=== PATIENT | male | born 1965 | race Asian ===

== ENCOUNTER 2017-01-26 09:14 | Inpatient (IN) | payer OTHER ==
[~2017-01-26] VITALS: Ht 177.8 cm; Wt 86.5 kg
[~2017-01-26 09:14] MED LIST: AMLO-145; ATOR20TA17; SERT-165; [UNRECOGNIZED DRUG - CODE]; [UNRECOGNIZED DRUG - OTHER]
[2017-01-26] MEDS ORDERED: FUROSEMIDE 40 MG INJ IV ONE (10:00)
--- NOTE | 2017-01-26 10:03 | ERA ---
ER Documentation Chief Complaint Date/Time DATE: 01/26/17 TIME: 10:02 Chief Complaint sob and bilateral leg swelling x 1 month HPI 51-year-old man here for evaluation of bilateral peripheral edema 4 weeks. Patient states for the last 2 weeks he has had some shortness of breath. Patient also complains of right upper quadrant abdominal pain 1-2 weeks which is been nonexertional nonradiating. He denies previous episodes of this type of abdominal pain. He has a family history of liver problems and has remote alcoholism although denies recent drinking. He denies blood per rectum or melena, no fevers or chills, no cough, no chest pain, no vomiting or diarrhea. ROS All systems reviewed and are negative except as per history of present illness. Medications Home Meds Reported Medications Cholecalciferol* (Vitamin D3*) 1,000 Unit Tablet, 2000 UNIT PO DAILY, TAB 01/26/17 Losartan Potassium* (Losartan Potassium*) 50 Mg Tablet, 50 MG PO DAILY, TAB 01/26/17 Furosemide* (Lasix*) 20 Mg Tablet, 20 MG PO DAILY, TAB 01/26/17 Lovastatin* (Lovastatin*) 20 Mg Tablet, 20 MG PO HS, TAB 01/26/17 Potassium Chloride (Klor-Con M10) 10 Meq Tab.prt.sr, 10 MEQ PO DAILY 01/26/17 Discontinued Reported Medications Atorvastatin (Lipitor) 20 Mg Tablet 05/23/10 Metoprolol Succinate (Toprol Xl) 200 Mg Tab.sr.24h 05/23/10 Amlodipine Besylate* (Amlodipine Besylate*) 5 Mg Tablet 05/23/10 Sertraline Hcl* (Sertraline Hcl*) 100 Mg Tablet 05/23/10 [Respirdone] No Conflict Check 05/23/10 Allergies Allergies: Coded Allergies: sesame oil (Verified Allergy, Mild, 01/26/17) PMhx/Soc Hepatitis B, alcoholism, hypertension, dyslipidemia, psychiatric illness History of Surgery: Yes (STENTS FOR KIDNEY STONES,DENTAL IMPLANT,LASIK, BACK SX ) Anesthesia Reaction: No Hx Neurological Disorder: No Hx Respiratory Disorders: No Hx Cardiac Disorders: No Hx Psychiatric Problems: Yes (PT ON ANTIDEPRESSANTS) Hx Miscellaneous Medical Probl: Yes (HIGH CHOLESTEROL) Hx Alcohol Use: Yes (RARE) Hx Substance Use: No Hx Tobacco Use: Yes Smoking Status: Never smoker FmHx Family history positive for hepatic carcinoma and cirrhosis Family History: No diabetes Physical Exam Vitals Vital Signs Date Time Temp Pulse Resp B/P Pulse Ox O2 Delivery O2 Flow Rate FiO2 01/26/17 13:00 98.3 89 20 148/90 99 Room Air 01/26/17 10:05 Nasal Cannula 2 01/26/17 10:05 Nasal Cannula 2.0 01/26/17 09:17 97.1 95 24 115/68 97 Physical Exam GENERAL: Well-developed, well-nourished, well-hydrated, in no apparent distress , looks nontoxic in appearance HEENT: Moist mucous membranes, pink conjunctiva, positive jaundice, extraocular movements intact without pain. No submandibular induration, and no pharyngeal erythema NEURO: Alert and oriented 3, cranial nerves II through XII intact bilaterally, pupils equal round reactive to light, no focal deficits or facial asymmetry, sensation intact distally Strength 5/5 in upper and lower extremities bilaterally CARDIAC: Regular rate and rhythm, no murmurs rubs or gallops LUNGS: Clear bilaterally no wheezing crackles or stridor ABDOMEN: Positive Dorado's point tenderness to touch, right upper quadrant tenderness to touch with voluntary guarding, no rigidity or rebound. SKIN: Warm and dry to touch, no abrasions, contusions, or hematomas, no lacerations, no ecchymosis, no target lesions, and without ulcers EXTREMITIES: No clubbing cyanosis, 3+ pitting edema in the lower extremities bilaterally, calves are bilaterally symmetrical, no Homans sign, no popliteal cord sign. Distal pulses equal and bilateral PSYCH: Normal affect without agitation or irritability Result Diagram: 01/26/17 1008 01/26/17 1008 Results 24 hrs Laboratory Tests Test 01/26/17 10:07 01/26/17 10:08 Blood Gas Specimen Source Blood arterial Arterial Blood Date Drawn 01/26/2017 10:30:05 AM Arterial Blood pH (Temp corrected) 7.378 Arterial Blood pCO2 (Temp correct) 39.1mmhg Arterial Blood pO2 (Temp corrected) 116.2mmHG Arterial Blood HCO3 22.5mmol/L Arterial Blood Base Excess -2.3mmol/L Arterial Blood Oxygen Saturation 97.7mmHG Jermaine Test ACCEPTAB Arterial Blood Gas Puncture Site Right Radial Arterial Blood Carboxyhemoglobin 2.6% Arterial Blood Methemoglobin 0.4% Blood Gas A-a O2 Differential 30.1mmHg Oxyhemoglobin Percent 94.8% Total Hemoglobin 14.5g/dl Blood Gas Temperature 37.0C Blood Gas Actual Respiration Rate 18 Blood Gas Modality ROOM AIR FiO2 27.0% Blood Gas Notified Whom Blood Gas Notified Time 01/26/2017 10:41:44 AM White Blood Count 5.510^3/ul Red Blood Count 4.2610^6/ul Hemoglobin 13.2g/dl Hematocrit 40.0% Mean Corpuscular Volume 93.9fl Mean Corpuscular Hemoglobin 31.0pg Mean Corpuscular Hemoglobin Concent 33.0g/dl Red Cell Distribution Width 15.6% Platelet Count 77986^3/UL Mean Platelet Volume 9.4fl Neutrophils % 61.1% Lymphocytes % 23.4% Monocytes % 10.6% Eosinophils % 4.0% Basophils % 0.5% Nucleated Red Blood Cells % 0.0/100WBC Neutrophils # 3.410^3/ul Lymphocytes # 1.310^3/ul Monocytes # 0.610^3/ul Eosinophils # 0.210^3/ul Basophils # 0.010^3/ul Nucleated Red Blood Cells # 0.010^3/ul Prothrombin Time 13.2Sec Prothrombin Time Ratio 1.0 INR International Normalized Ratio 1.00 Sodium Level 142mmol/L Potassium Level 4.2mmol/L Chloride Level 110mmol/L Carbon Dioxide Level 22mmol/L Anion Gap 14 Blood Urea Nitrogen 18mg/dl Creatinine 1.06mg/dl Glucose Level 97mg/dl Calcium Level 8.4mg/dl Total Bilirubin 0.6mg/dl Direct Bilirubin 0.00mg/dl Indirect Bilirubin 0.6mg/dl Aspartate Amino Transf (AST/SGOT) 31IU/L Alanine Aminotransferase (ALT/SGPT) 49IU/L Alkaline Phosphatase 62IU/L Troponin I 0.034ng/ml Total Protein 5.9g/dl Albumin 3.5g/dl Globulin 2.40g/dl Albumin/Globulin Ratio 1.45 Lipase 83U/L Alpha Fetoprotein 2.95IU/L Carcinoembryonic Antigen 1.6ng/ml Current Medications Medications (Trade) Dose Ordered Sig/Nii Route PRN Reason Start Time Stop Time Status Last Admin Dose Admin Furosemide 40 mg 40 mg ONCE ONCE IV 01/26/17 10:00 01/26/17 10:01 DC 7/24/17 10:14 Levofloxacin/ Dextrose (Levaquin 750 Mg/ D5W 150 ml (Pmx)) 150 ml @ 100 mls/hr ONCE ONCE IVPB 01/26/17 11:30 01/26/17 12:59 DC 01/26/17 11:29 Albuterol (Proventil 0.5% (Neb)) 10 mg ONCE STAT INH 01/26/17 11:33 01/26/17 11:35 DC Enalaprilat (Vasotec Iv) 1.25 mg ONCE ONCE IV 01/26/17 14:00 01/26/17 14:01 Procedures/MDM IV line was established patient was placed on school lunch monitor rhythm strip revealed a sinus rhythm at about 80 bpm with upright P and T waves. Patient was afebrile. EKG performed, read by me: 88 bpm, normal sinus rhythm, normal axis, no acute ST segment changes, narrow QRS complex, with good R-wave progression in precordial leads. I initially suspected CHF and administered furosemide 40 mg IV, patient was hypertensive and he received enalapril 1.[address] scan of the abdomen and pelvis did not reveal any acute inflammatory infectious pathology. One view chest x-ray reveals right lower lobe atelectasis, no acute infiltrates , no pneumothorax. Right upper quadrant gallbladder ultrasound revealed thickened gallbladder wall with gallstones concerning for possible acute cholecystitis, MRCP recommended. ABG was normal. For complaints of shortness of breath I administered albuterol 10 mg via nebulizer. Patient has abnormalities found on today's imaging both of which can contribute to right upper quadrant abdominal pain, she presents with peripheral edema shortness of breath, which I suspect is pulmonary edema. He was also hypertensive. He will be admitted to telemetry setting for continued medical management and surgical consultation. I spoke to general surgeon communication electronic technician who agreed to consult the patient. Patient is without complaints of pain at this time. CBC and electrolytes were normal, liver function tests normal, troponin was negative. Departure Diagnosis: Primary Impression: Peripheral edema Additional Impressions: Atelectasis of right lung CHF (congestive heart failure) Qualified Code: I50.21 - Acute systolic congestive heart failure Hypertension Qualified Code: I10 - Essential hypertension Cholelithiasis and acute cholecystitis with obstruction Condition: MAO Montes MD Jan 26, 2017 10:03
--- NOTE | 2017-01-26 10:25 | RADRPT ---
PROCEDURE: XR Chest. CLINICAL INDICATION: Abdominal pain TECHNIQUE: Single portable view of the chest was obtained COMPARISON: None FINDINGS: The heart is enlarged. There are mild right lower lobe linear atelectatic changes. The lungs are otherwise clear. There is no pleural effusion or pneumothorax. RPTAT: AA IMPRESSION: Mild Cardiomegaly. Mild right lower lobe linear atelectatic changes. .Rory Pepe MD, MD Date Time Electronically viewed and signed by .Rory Pepe MD, on 01/26/2017 10:25 .S/
[2017-01-26 10:31] LABS: BASOPHILS % 0.5 % (0.0-2.0); EOSINOPHILS # 0.2 10^3/ul (0.0-0.5); HEMOGLOBIN 13.2 g/dl (14.0-18.0); LYMPHOCYTES # 1.3 10^3/ul (0.8-2.9); LYMPHOCYTES % 23.4 % (15.0-51.0); MEAN CORPUSCULAR VOLUME 93.9 fl (82.0-101.0); MEAN PLATELET VOLUME 9.4 fl (7.4-10.4); MONOCYTE # 0.6 10^3/ul (0.3-0.9); MONOCYTES % 10.6 % (0.0-11.0); NEUTROPHIL # 3.4 10^3/ul (1.6-7.5); NEUTROPHILS % 61.1 % (39.0-77.0); PLATELET COUNT 190 10^3/UL (140-415); RED BLOOD COUNT 4.26 10^6/ul (4.70-6.10); RED CELL DISTRIBUTION WIDTH 15.6 % (11.5-14.5); WHITE BLOOD COUNT 5.5 10^3/ul (4.8-10.8)
[2017-01-26 10:41] LABS: AADO2 Arterial 30.1 mmHg (7.0-24.0); Allen Test ACCEPTAB; Arterial Base Excess -2.3 mmol/L (-3.0-3); Arterial COHb 2.6 % (0.0-3.0); Arterial Fraction of Oxyhgb 94.8 % (93.0-99.0); Arterial HCO3 22.5 mmol/L (22.0-26.0); Arterial MetHb 0.4 % (0.0-1.5); Arterial Total Hemglobin 14.5 g/dl (12.0-18.0); MODE ROOM AIR
[2017-01-26 10:54] LABS: PROTIME 13.2 Sec (12.2-14.2)
[2017-01-26 10:58] LABS: ALBUMIN 3.5 g/dl (3.3-4.9); ALBUMIN/GLOBULIN RATIO 1.45; BILIRUBIN,INDIRECT 0.6 mg/dl (0-1.1); BILIRUBIN,TOTAL 0.6 mg/dl (0.2-1.3); CALCIUM 8.4 mg/dl (8.4-10.2); CREATININE 1.06 mg/dl (0.61-1.24); POTASSIUM 4.2 mmol/L (3.5-5.1); TOTAL PROTEIN 5.9 g/dl (6.1-8.1)
[2017-01-26 11:07] LABS: TROPONIN-I 0.034 ng/ml (0.00-0.12)
[2017-01-26 11:26] LABS: CARCINOEMBRYONIC ANTIGEN 1.6 ng/ml (0.0-5.0)
[2017-01-26] MEDS ORDERED: LEVOFLOXACIN 750MG/D5W (PMX) 150 ML IVPB ONE (11:30)
[2017-01-26] MEDS ORDERED: ALBUTEROL 0.5% (NEB) 2.5 MG/0.5 ML AMP INH STA (11:33)
--- NOTE | 2017-01-26 11:33 | RADRPT ---
PROCEDURE: CT Abdomen and pelvis without contrast. CLINICAL INDICATION: Abdominal pain TECHNIQUE: CT scan of the abdomen and pelvis without contrast was performed on a multidetector hig h-resolution CT scan. . Coronal and sagittal reformatted images were obtained from the [facility] e images. Standard CT scan of the abdomen pelvis without contrast protocols were performed. The total exam CTDI equals 11.082 mGy and the total exam DLP equals 697.71 mGy-cm. One or more of the following dose reduction techniques were used: - Automated exposure control. - Adjustment of the mA and/or kV according to patient size. Use of iterative reconstruction technique. COMPARISON: None. FINDINGS: There is bibasilar atelectasis and parenchymal scarring. There is a small dependent right pleural e ffusion incompletely visualized. The heart is borderline enlarged with coronary artery disease. No pericardial effusion. In the subcapsular superior left lobe of the liver is a 2 cm cyst. In the superior right lobe of th e liver is a 1.2 cm cyst. In the superior right lobe of the liver is a punctate calcification consis tent with old granulomatous disease. No other hepatic lesions. The spleen pancreas and adrenal gland s are unremarkable. There are multiple calcified gallstones but no definite gallbladder wall thickening. Trace perichol ecystic fluid. Rule out acute calculus cholecystitis. No evidence of biliary ductal dilation. The kidneys are normal in size without hydronephrosis bilaterally. In the superior right kidney is a 3 mm non-obstructing calcified calculus. No other renal calcified calculi. In the lateral left r enal cortex is 8 mm low density too small to absolutely characterize but is likely a cyst. No other definite intra renal masses bilaterally. The ureters are prominent but no definite calcified urete ral calculi. The urinary bladder is unremarkable. The prostate gland is unremarkable. Negative for intra-abdominal free air, free fluid, abscesses or lymphadenopathy. There is a tiny hiatal hernia with the stomach otherwise unremarkable. The small bowel and appendix are unremarkable. There is diverticular changes of the distal descending and sigmoid colon but no CT evidence of diverticulitis. The colon is otherwise unremarkable. There is a small fat containing right inguinal hernia without herniated bowel or strangulation. Pos sible bilateral hydroceles. The abdominal pelvic wall is otherwise unremarkable. There is atherosc lerosis of the aorta. There are degenerative changes lower thoracic and lumbar spine but no acute osseous findings are ost eoblastic/osteolytic lesions. IMPRESSION: 1. Multiple calcified gallstones and trace pericholecystic fluid without biliary ductal dilation. Rule out acute calculus cholecystitis per 2. 3 mm non-obstructing superior right renal calcified calculus. No other calcified urinary calcul i or obstructive uropathy. 8 mm left lateral renal low density likely a cyst. 3. Tiny hiatal hernia. 4. Colonic diverticulosis without CT evidence of diverticulitis or appendicitis. 5. Negative for intra-abdominal free air fluid or abscesses. 6. Small fat containing right inguinal hernia without herniated bowel or strangulation. RPTAT:AAJJ Physician [place] Date Time Electronically viewed and signed by Nathan Hoang Physician on 01/26/2017 11:33 /
--- NOTE | 2017-01-26 12:36 | RADRPT ---
PROCEDURE: Right Upper Quadrant Ultrasound. CLINICAL INDICATION: Abdominal pain, r/o cholecystitis TECHNIQUE: Multiple real-time images were acquired of the patient's right upper quadrant abdomen a nd retroperitoneum utilizing a high resolution transducer. COMPARISON: CT abdomen/pelvis from the same date FINDINGS: The liver measures 15.4 cm, and demonstrates normal echogenicity. The main portal vein is patent wit h proper directional flow. There is no intrahepatic biliary ductal dilatation. The extrahepatic comm on bile duct measures 5 mm. A 1.6 cm simple cyst is identified in the superficial aspect of the left lobe of the liver. It is not associated with vascular flow. A right pleural effusion is incidentally noted. There is cholelithiasis. There is mild nonspecific thickening of the gallbladder wall to 4 mm. Ther e is no pericholecystic fluid. The visualized pancreas is unremarkable. The right kidney measures 11.3 cm and demonstrates normal echotexture. There is no right renal calcu dmitriy or hydronephrosis. The visualized abdominal aorta and IVC are grossly unremarkable. IMPRESSION: Cholelithiasis with mild nonspecific gallbladder wall thickening and no pericholecystic fluid. Find ings may represent acute cholecystitis in the appropriate clinical setting. If further confirmation is indicated, an MRCP can be obtained for further evaluation. Normal CBD. Incidentally noted right pleural effusion. 1.6 cm simple hepatic cyst. RPTAT: EE Physician Diego Date Time Electronically viewed and signed by Physician Diego on 01/26/2017 12:36 /
[2017-01-26] MEDS ORDERED: POTA10TA15 PO (12:45)
[2017-01-26] MEDS ORDERED: LOSA50TA6 PO (12:45)
[2017-01-26] MEDS ORDERED: CHOL100062 PO (12:45)
[2017-01-26] MEDS ORDERED: LOVA20TA PO (12:45)
[2017-01-26] MEDS ORDERED: FURO-110 PO (12:45)
[2017-01-26] MEDS ORDERED: ENALAPRILAT 1.25 MG INJ IV ONE (14:00)
[2017-01-26 16:00] VITALS: TEMP 98.3
[2017-01-26] MEDS ORDERED: HYDROCODONE/APAP (5/325) TAB PO PRN ×2 (16:00)
[2017-01-26] MEDS ORDERED: DOCUSATE SODIUM 100 MG CAP PO PRN (16:00)
[2017-01-26] MEDS ORDERED: ACETAMINOPHEN 325 MG TAB PO PRN (16:00)
[2017-01-26] MEDS ORDERED: morphine 2 MG INJ IV PRN (16:00)
[2017-01-26] MEDS ORDERED: NACL 0.9% 3 ML SYG IV SCH (16:00)
[2017-01-26] MEDS ORDERED: BISACODYL 10 MG SUPP PR PRN (16:00)
[2017-01-26] MEDS ORDERED: ONDANSETRON 4 MG INJ IV PRN (16:00)
[2017-01-26] MEDS ORDERED: ACETAMINOPHEN 650 MG SUPP PR PRN (16:00)
[2017-01-26] MEDS ORDERED: MAGNESIUM HYDROXIDE 30ML CUP PO PRN (16:00)
[2017-01-26] MEDS ORDERED: SOD CHLORIDE 0.9% 1,000 ML IV SCH (16:00)
--- NOTE | 2017-01-26 16:12 | HP ---
Date/Time of Note Date/Time of Note DATE: 01/26/17 TIME: 15:57 Assessment/Plan VTE Prophylaxis VTE Prophylaxis Intervention: SCD's Assessment/Plan Chief Complaint/Hosp Course Impression and plan 1. Abdominal pain. Patient with abdominal imaging with cholelithiasis with suspect cholecystitis. f/u LFT. Will get surgeon to follow. 2. 3 mm nonobstructing superior right renal calcified calculus. Monitor renal panel. Appears stable At present. Continue IV hydration 3. Colonic diverticulosis without diverticulitis. Continue IV fluids. 4. Right sided pleural effusion. continue on diuretic. Will check echo. 5. elevated bnp. suspect chf exacerbation. Check echocardiogram 6. Essential Hypertension. start antihypertensives and adjust as needed Discussed plan of care with Dr. Palumbo Problems: HPI/ROS Admit Date/Time Admit Date/Time Hx of Present Illness This is a 51-year-old male with history of schizophrenia, hypertension, chronic back pain with herniated disc status post surgical repair, who came to [facility] due to reports of increased bilateral lower extremity edema as well as shortness of breath on exertion and abdominal pain for 1 month duration. Patient of note does live at home with family but reportedly cares for himself. He was seen by family with more notable shortness of breath last night and was subsequently brought to [facility] for further evaluation. Upon examination he did have chest x-ray done that did show him to have mild cardiomegaly as well as a right lower lobe linear atelectatic change. Subsequently abdominal pelvic CT scan was done also that did show him to have multiple calcified gallstones and trace pericholecystic fluid with suspect cholecystitis. There is incidentally found a 3 mm nonobstructing superior right renal calcified calculus as well. There was seen colonic diverticulosis without evidence of diverticulitis. And there was also seen a small fat- containing right inguinal hernia without herniated bowel or stimulation. Patient also had blood work done that did show him to have some slight anemia with hemoglobin of 13.2 and hematocrit of 40.0 respectively. Additionally BNP was done that did show him to have a level of 2470. Patient was hypertensive on admission with blood pressure as high as 170/101. He was afebrile. He does report having some intermittent chest pain [id number]. He also reports having some dyspnea on exertion. Initial troponin was negative. We will evaluate him for the aformentiond issues. ROS 12 point review of systems obtained and negative besides that mentioned in history of present illness PMH/Family/Social Past Medical History Medical/surgical history 1. Essential hypertension 2. Schizophrenia 3. Chronic back pain 4. History of herniated disc status post repair Social History Alcohol Use: heavy (Does reportedly have history of alcohol use but exact amount unknown) Smoking Status: Heavy tobacco smoker Drug Use: other (unknown) Exam/Review of Systems Vital Signs Vitals Vital Signs Date Time Temp Pulse Resp B/P Pulse Ox O2 Delivery O2 Flow Rate FiO2 01/26/17 15:00 98.3 86 20 154/117 98 Room Air 01/26/17 13:48 2.0 Exam Constitutional: alert Psych: anxiety Head: normocephalic Respiratory: clear to auscultation, normal air movement Cardiovascular: regular rate and rhythm Gastrointestinal: soft, tender (Right upper abdominal quadrant) Extremities: edema (Bilateral lower extreme) Neurological: other (History of schizophrenia with rambling) Labs Result Diagram: 01/26/17 1008 01/26/17 1008 ANT ARMANDO Jan 26, 2017 16:08
--- NOTE | 2017-01-26 16:48 | RADRPT ---
PROCEDURE: US Lower extremity Venous. CLINICAL INDICATION: Bilateral lower extremity edema TECHNIQUE: Multiple sonographic images of the bilateral lower extremity deep venous system was obt ained utilizing grayscale, color-flow, compressive sonography and doppler imaging with augmentation. The images were reviewed on a PACS workstation. COMPARISON: None. FINDINGS: There is normal compressibility and flow within the bilateral common femoral, femoral , posterior ti bial and popliteal veins. RPTAT: AA IMPRESSION: No sonographic evidence for deep venous thrombosis. .Rory Pepe MD, MD Date Time Electronically viewed and signed by .Rory Pepe MD, MD on 01/26/2017 16:47 .S/
[2017-01-26 16:56] VITALS: PULSE 78
[2017-01-26 17:10] VITALS: PULSE 78
[2017-01-26 17:15] VITALS: Ht 177.8 cm; Wt 86.5 kg
[2017-01-26 17:21] VITALS: BP 152/110; PULSE 83; RESP 20
--- NOTE | 2017-01-26 18:36 | CONS ---
Date/Time of Note Date/Time of Note DATE: 01/26/17 TIME: 18:32 Assessment/Plan Assessment/Plan Chief Complaint/Hosp Course Asymptomatic cholelithiasis No further treatment needed at this time. If patient does develop symptoms in the future, may require a laparoscopic cholecystectomy. Problems: Consultation Date/Type/Reason Admit Date/Time Date of Consultation: Jan 26, 2017 Reason for Consultation Cholelithiasis Hx of Present Illness The patient is a 51-year-old male with history of schizophrenia, hypertension, chronic back pain with herniated disc status post surgical repair, who came to [facility] due to reports of increased bilateral lower extremity edema as well as shortness of breath on exertion and abdominal pain for 1 month duration. He also had shortness of breath. During his workup, he was found to have some right upper quadrant tenderness but ER physician. A CT scan was ordered and then an ultrasound which showed gallstones and some gallbladder wall thickening. I was called for consultation. Now is resting comfortably without abdominal pain. He is tolerating a soft diet without symptoms. He denies prior episodes of right upper quadrant pain or nausea or emesis. His workup did show a chest x-ray done that did show him to have mild cardiomegaly as well as a right lower lobe linear atelectatic change. Additionally BNP was done that did show him to have a level of 2470. Patient was hypertensive on admission with blood pressure as high as 170/101. He was afebrile. He does report having some intermittent chest pain non-pressure- like. He also reports having some dyspnea on exertion. Initial troponin was negative. 14 point review of systems was performed. Pertinent negatives per HPI Psychological: anxiety Past Medical History Essential hypertension 2. Schizophrenia 3. Chronic back pain 4. History of herniated disc status post repair Social History Alcohol Use: heavy (Does reportedly have history of alcohol use but exact amount unknown) Smoking Status: Current every day smoker Drug Use: other (unknown) Exam/Review of Systems Vital Signs Vitals Vital Signs Date Time Temp Pulse Resp B/P Pulse Ox O2 Delivery O2 Flow Rate FiO2 01/26/17 17:30 Nasal Cannula 2.0 01/26/17 17:21 97.8 83 20 152/110 98 Exam Constitutional: alert, oriented, well developed Psych: no complaints Head: atraumatic, normocephalic Eyes: nl conjunctiva ENMT: nl external ears & nose Neck: supple Respiratory: diminished breath sounds Cardiovascular: regular rate and rhythm Gastrointestinal: non-tender, soft Extremities: normal pulses Neurological: OPTICAL GLASS WET INSPECTOR II-XII intact Skin: nl turgor Lymph: nl lymph nodes Results Result Diagram: 01/26/17 1008 01/26/17 1008 Results 24 hrs Laboratory Tests Test 01/26/17 10:07 01/26/17 10:08 Blood Gas Specimen Source Blood arterial Arterial Blood Date Drawn 01/26/2017 10:30:05 AM Arterial Blood pH (Temp corrected) 7.378 Arterial Blood pCO2 (Temp correct) 39.1 Arterial Blood pO2 (Temp corrected) 116.2 H Arterial Blood HCO3 22.5 Arterial Blood Base Excess -2.3 Arterial Blood Oxygen Saturation 97.7 Jermaine Test ACCEPTAB Arterial Blood Gas Puncture Site Right Radial Arterial Blood Carboxyhemoglobin 2.6 Arterial Blood Methemoglobin 0.4 Blood Gas A-a O2 Differential 30.1 H Oxyhemoglobin Percent 94.8 Total Hemoglobin 14.5 Blood Gas Temperature 37.0 Blood Gas Actual Respiration Rate 18 Blood Gas Modality ROOM AIR FiO2 27.0 Blood Gas Notified Whom Blood Gas Notified Time 01/26/2017 10:41:44 AM White Blood Count 5.5 Red Blood Count 4.26 L Hemoglobin 13.2 L Hematocrit 40.0 L Mean Corpuscular Volume 93.9 Mean Corpuscular Hemoglobin 31.0 Mean Corpuscular Hemoglobin Concent 33.0 Red Cell Distribution Width 15.6 H Platelet Count 190 Mean Platelet Volume 9.4 Neutrophils % 61.1 Lymphocytes % 23.4 Monocytes % 10.6 Eosinophils % 4.0 Basophils % 0.5 Nucleated Red Blood Cells % 0.0 Neutrophils # 3.4 Lymphocytes # 1.3 Monocytes # 0.6 Eosinophils # 0.2 Basophils # 0.0 Nucleated Red Blood Cells # 0.0 Prothrombin Time 13.2 Prothrombin Time Ratio 1.0 INR International Normalized Ratio 1.00 Sodium Level 142 Potassium Level 4.2 Chloride Level 110 Carbon Dioxide Level 22 Anion Gap 14 Blood Urea Nitrogen 18 Creatinine 1.06 Glucose Level 97 Calcium Level 8.4 Total Bilirubin 0.6 Direct Bilirubin 0.00 Indirect Bilirubin 0.6 Aspartate Amino Transf (AST/SGOT) 31 Alanine Aminotransferase (ALT/SGPT) 49 Alkaline Phosphatase 62 Troponin I 0.034 B-Type Natriuretic Peptide 2470 H Total Protein 5.9 L Albumin 3.5 Globulin 2.40 Albumin/Globulin Ratio 1.45 Lipase 83 Alpha Fetoprotein 2.95 Carcinoembryonic Antigen 1.6 Medications Medications Current Medications Cholecalciferol (Vitamin D) 2,000 unit DAILY PO ; Start 01/27/17 at 09:00 Losartan Potassium (Cozaar) 50 mg DAILY PO ; Start 01/27/17 at 09:00 Atorvastatin Calcium 10 mg 10 mg HS PO ; Start 01/26/17 at 21:00 Sodium Chloride (NS) 1,000 ml @ 80 mls/hr [id number] IV Last administered on 01/26t 17:51; Admin Dose 80 MLS/HR; Start 01/26/17 at 16:00 Ondansetron HCl (Zofran Inj) 4 mg Q6H PRN IV NAUSEA AND/OR VOMITING; Start at 16:00 Acetaminophen (Tylenol Tab) 650 mg Q6H PRN PO PAIN LEVEL 1-3 OR FEVER; Start at 16:00 Acetaminophen (Tylenol Supp) 650 mg Q6H PRN [place] PAIN LEVEL 1-3 OR FEVER; Start 01/26/17 at 16:00 Acetaminophen/ Hydrocodone Bitart ([place] (5/325)) 1 tab Q6H PRN PO MODERATE PAIN LEVEL 4-6; Start 01/26/17 at 16:00 Acetaminophen/ Hydrocodone Bitart ([place] (5/325)) 2 tab Q6H PRN PO SEVERE PAIN LEVEL 7-10; Start 01/26/17 at 16:00 Morphine Sulfate (morphine) 2 mg Q4H PRN IV SEVERE PAIN LEVEL 7-10; Start 01/26 at 16:00 Docusate Sodium (Colace) 100 mg Q12H PRN PO CONSTIPATION; Start 01/26/17 at 16: 00 Magnesium Hydroxide (Milk Of Mag) 30 ml DAILY PRN PO CONSTIPATION; Start at 16:00 Bisacodyl (Dulcolax Supp) 10 mg DAILY PRN [place] CONSTIPATION; Start 01/26/17 at 16 :00 Pantoprazole (Protonix Iv) 40 mg DAILY@06 IV ; Start 01/27/17 at 06:00 Furosemide (Lasix) 40 mg DAILY IV ; Start 01/27/17 at 09:00 Procedures Procedures Patient: LEO CAICEDO : 1965 Age: 51 Sex: M MR #: [id number] DOS: 01/26/17 1138 Ordering MD: MAO MARTIN MD Location: E/R Room/Bed: PROCEDURE: Right Upper Quadrant Ultrasound. CLINICAL INDICATION: Abdominal pain, r/o cholecystitis TECHNIQUE: Multiple real-time images were acquired of the patient's right upper quadrant abdomen and retroperitoneum utilizing a high resolution transducer. COMPARISON: CT abdomen/pelvis from the same date FINDINGS: The liver measures 15.4 cm, and demonstrates normal echogenicity. The main portal vein is patent with proper directional flow. There is no intrahepatic biliary ductal dilatation. The extrahepatic common bile duct measures 5 mm. A 1.6 cm simple cyst is identified in the superficial aspect of the left lobe of the liver. It is not associated with vascular flow. A right pleural effusion is incidentally noted. There is cholelithiasis. There is mild nonspecific thickening of the gallbladder wall to 4 mm. There is no pericholecystic fluid. The visualized pancreas is unremarkable. The right kidney measures 11.3 cm and demonstrates normal echotexture. There is no right renal calculus or hydronephrosis. The visualized abdominal aorta and IVC are grossly unremarkable. IMPRESSION: Cholelithiasis with mild nonspecific gallbladder wall thickening and no pericholecystic fluid. Findings may represent acute cholecystitis in the appropriate clinical setting. If further confirmation is indicated, an MRCP can be obtained for further evaluation. Normal CBD. Incidentally noted right pleural effusion. 1.6 cm simple hepatic cyst. HARLEY ESCOBAR MD Jan 26, 2017 18:36
[2017-01-26 19:40] VITALS: BP 154/93; RESP 18
[2017-01-26 20:00] VITALS: PULSE 78
[2017-01-26] MEDS: ATORVASTATIN 10 MG TAB PO SCH (21:00)
[2017-01-26] MEDS ORDERED: FUROSEMIDE 40 MG INJ IV SCH (23:30)
[2017-01-26] MEDS ORDERED: ALBUTEROL 0.5% (NEB) 2.5 MG/0.5 ML AMP INH SCH (23:30)
[2017-01-27] VITALS (13 sets, daily range): BP systolic 123–145; BP diastolic 91–100; PULSE 69–157; RESP 18–20
[2017-01-27] MEDS: PANTOPRAZOLE 40 MG INJ IV SCH (06:09)
[2017-01-27 08:01] LABS: ALBUMIN 3.4 g/dl (3.3-4.9); ALBUMIN/GLOBULIN RATIO 1.47; BILIRUBIN,INDIRECT 0.7 mg/dl (0-1.1); BILIRUBIN,TOTAL 0.7 mg/dl (0.2-1.3); CALCIUM 8.9 mg/dl (8.4-10.2); CHOL/HDL RATIO 2.8 RATIO; CREATININE 1.03 mg/dl (0.61-1.24); PHOSPHORUS 3.9 mg/dl (2.5-4.9); POTASSIUM 4.6 mmol/L (3.5-5.1); TOTAL PROTEIN 5.7 g/dl (6.1-8.1)
[2017-01-27 08:17] LABS: T3 UPTAKE 36.5 % (23.5-40.5)
[2017-01-27] MEDS: CHOLECALCIFEROL 2,000 UNIT CAP PO SCH (08:51)
[2017-01-27] MEDS: FUROSEMIDE 40 MG INJ IV SCH (08:51)
[2017-01-27] MEDS: LOSARTAN 50 MG TAB PO SCH (08:51)
[2017-01-27 12:21] LABS: THYROID STIMULATING HORMONE 1.57 MIU/L (0.465-4.680)
--- NOTE | 2017-01-27 17:00 | PN ---
Date/Time of Note Date/Time of Note DATE: 01/27/17 TIME: 16:53 Assessment/Plan VTE Prophylaxis VTE Prophylaxis Intervention: LMWH Lines/Catheters IV Catheter Type (from [facility] Saline Lock Urinary Cath still in place: No Assessment/Plan Assessment/Plan 1. Peripheral edema and generalized body ache, unclear etiology, Echo 2. Hypertension, controlled 3. Dyslipidemia, on statin, check CPK Subjective 24 Hr Interval Summary Free Text/Dictation 51 years old male with schizophrenia, a heavy smoker and ex-alcohol abuser came in with generalized edema and body ache. Exam/Review of Systems Vital Signs Vitals Vital Signs Date Time Temp Pulse Resp B/P Pulse Ox O2 Delivery O2 Flow Rate FiO2 01/27/17 16:24 72 01/27/17 16:17 98.6 18 133/94 100 01/27/17 11:33 Nasal Cannula 3.0 Intake and Output 01/26/17 01/26/17 01/27/17 15:00 23:00 07:00 Intake Total 200 ml 520 ml Output Total 400 ml 1450 ml Balance -200 ml -930 ml Exam Constitutional: alert, oriented, well developed Psych: nl mood/affect, no complaints Head: atraumatic, normocephalic Eyes: EOMI, PERRL, nl conjunctiva, nl lids, nl sclera ENMT: nl external ears & nose, nl lips & teeth, nl nasal mucosa & septum Neck: non-tender, supple Respiratory: clear to auscultation, normal air movement, No congested cough, No crackles/rales, No diminished breath sounds, No intercostal retraction, No labored breathing, No other, No respirations, No tactile fremitus, No wheezing Cardiovascular: nl pulses, regular rate and rhythm, No S3, No S4, No bruits, No diastolic murmur, No edema, No gallop, No irregular rhythm, No jugular venous distention (JVD), No murmurs/extra sounds, No other, No rub, No systolic murmur Gastrointestinal: nl liver, spleen, soft, No ascites, No bowel sounds, No distended, No firm, No hepatomegaly, No mass , No other, No rebound or guarding, No splenomegaly, No surgical scars Musculoskeletal: nl extremities to inspection Extremities: edema (bilateral pitting edema on LEs), normal pulses, No calf tenderness, No clubbing, No cyanosis, No other, No palpable cord, No pitting pedal edema, No tenderness Neurological: VEST BUSHELER II-XII intact, nl mental status, nl speech, nl strength Results Result Diagram: 01/26/17 1008 01/27/17 0707 Results 24 hrs Laboratory Tests Test 01/27/17 07:07 Sodium Level 142 Potassium Level 4.6 Chloride Level 105 Carbon Dioxide Level 25 Anion Gap 17 H Blood Urea Nitrogen 18 Creatinine 1.03 Glucose Level 97 Hemoglobin A1c 5.7 Calcium Level 8.9 Phosphorus Level 3.9 Magnesium Level 2.0 Total Bilirubin 0.7 Direct Bilirubin 0.00 Indirect Bilirubin 0.7 Aspartate Amino Transf (AST/SGOT) 25 Alanine Aminotransferase (ALT/SGPT) 45 Alkaline Phosphatase 59 Total Protein 5.7 L Albumin 3.4 Globulin 2.30 Albumin/Globulin Ratio 1.47 Triglycerides Level 61 Cholesterol Level 130 LDL Cholesterol, Calculated 73 HDL Cholesterol 45 Cholesterol/HDL Ratio 2.8 Thyroid Stimulating Hormone (TSH) 1.570 Free Thyroxine Index 2.99 Thyroxine (T4) 8.2 Triiodothyronine (T3) Uptake 36.5 Medications Medications Current Medications Cholecalciferol (Vitamin D) 2,000 unit DAILY PO Last administered on 01/27/17 08:51; Admin Dose 2,000 UNIT; Start 01/27/17 at 09:00 Losartan Potassium (Cozaar) 50 mg DAILY PO Last administered on 01/27/17 08:51 ; Admin Dose 50 MG; Start 01/27/17 at 09:00 Atorvastatin Calcium 10 mg 10 mg HS PO Last administered on 01/26/17 21:00; Admin Dose 10 MG; Start 01/26/17 at 21:00 Sodium Chloride (NS) 1,000 ml @ 80 mls/hr [id number] IV Last administered on 01/26 17:51; Admin Dose 80 MLS/HR; Start 01/26/17 at 16:00; Status Future Hold Ondansetron HCl (Zofran Inj) 4 mg Q6H PRN IV NAUSEA AND/OR VOMITING; Start at 16:00 Acetaminophen (Tylenol Tab) 650 mg Q6H PRN PO PAIN LEVEL 1-3 OR FEVER; Start at 16:00 Acetaminophen (Tylenol Supp) 650 mg Q6H PRN [place] PAIN LEVEL 1-3 OR FEVER; Start 01/26/17 at 16:00 Acetaminophen/ Hydrocodone Bitart ([place] (5/325)) 1 tab Q6H PRN PO MODERATE PAIN LEVEL 4-6 Last administered on 01/27/17 03:07; Admin Dose 1 TAB; Start at 16:00 Acetaminophen/ Hydrocodone Bitart ([place] (5/325)) 2 tab Q6H PRN PO SEVERE PAIN LEVEL 7-10; Start 01/26/17 at 16:00 Morphine Sulfate (morphine) 2 mg Q4H PRN IV SEVERE PAIN LEVEL 7-10; Start 01/26 at 16:00 Docusate Sodium (Colace) 100 mg Q12H PRN PO CONSTIPATION; Start 01/26/17 at 16: 00 Magnesium Hydroxide (Milk Of Mag) 30 ml DAILY PRN PO CONSTIPATION; Start at 16:00 Bisacodyl (Dulcolax Supp) 10 mg DAILY PRN [place] CONSTIPATION; Start 01/26/17 at 16 :00 Pantoprazole (Protonix Iv) 40 mg DAILY@06 IV Last administered on 01/27/17 06: 09; Admin Dose 40 MG; Start 01/27/17 at 06:00 Furosemide (Lasix) 40 mg DAILY IV Last administered on 01/27/17 08:51; Admin Dose 40 MG; Start 01/27/17 at 09:00 PARDEEP SANDERSON MD Jan 27, 2017 17:00
[2017-01-27 19:13] LABS: TROPONIN-I 0.032 ng/ml (0.00-0.12)
[2017-01-27 19:15] LABS: CK-MB 0.68 ng/ml (0.0-2.4)
[2017-01-27] MEDS: ATORVASTATIN 10 MG TAB PO SCH (21:22)
[2017-01-27] MEDS: ALBUTEROL/IPRATROPIUM (NEB) 3 ML AMP HHN PRN (23:18)
[2017-01-28] VITALS (13 sets, daily range): BP systolic 115–143; BP diastolic 41–109; PULSE 65–87; RESP 17–19
[2017-01-28] MEDS: PANTOPRAZOLE 40 MG INJ IV SCH (05:26)
[2017-01-28] MEDS: ALBUTEROL/IPRATROPIUM (NEB) 3 ML AMP HHN PRN (05:32)
[2017-01-28] MEDS: CHOLECALCIFEROL 2,000 UNIT CAP PO SCH (08:35)
[2017-01-28] MEDS: LOSARTAN 50 MG TAB PO SCH (08:37)
[2017-01-28] MEDS: FUROSEMIDE 40 MG INJ IV SCH (08:38)
--- NOTE | 2017-01-28 13:53 | PN ---
Date/Time of Note Date/Time of Note DATE: 01/28/17 TIME: 13:48 Assessment/Plan VTE Prophylaxis VTE Prophylaxis Intervention: LMWH Lines/Catheters IV Catheter Type (from Nrs): Saline Lock Urinary Cath still in place: No Assessment/Plan Assessment/Plan 1. Peripheral edema likely diastolic CHF related, lasix/zaroxolyn 2. Hypertension, controlled 3. Dyslipidemia, on statin Subjective 24 Hr Interval Summary Free Text/Dictation no respiratory distress Exam/Review of Systems Vital Signs Vitals Vital Signs Date Time Temp Pulse Resp B/P Pulse Ox O2 Delivery O2 Flow Rate FiO2 01/28/17 13:20 72 01/28/17 11:48 98.6 19 126/85 99 01/28/17 08:00 Nasal Cannula 3.0 Intake and Output 01/27/17 01/27/17 01/28/17 15:00 23:00 07:00 Intake Total 700 ml 160 ml Output Total 2100 ml 700 ml Balance -1400 ml -540 ml Exam Constitutional: alert, oriented, well developed Psych: nl mood/affect, no complaints Head: atraumatic, normocephalic Eyes: EOMI, PERRL, nl conjunctiva, nl lids ENMT: nl external ears & nose, nl lips & teeth, nl nasal mucosa & septum Neck: non-tender, supple Respiratory: clear to auscultation, normal air movement, No congested cough, No crackles/rales, No diminished breath sounds, No intercostal retraction, No labored breathing, No other, No respirations, No tactile fremitus, No wheezing Cardiovascular: nl pulses, regular rate and rhythm, No S3, No S4, No bruits, No diastolic murmur, No edema, No gallop, No irregular rhythm, No jugular venous distention (JVD), No murmurs/extra sounds, No other, No rub, No systolic murmur Gastrointestinal: nl liver, spleen, non-tender, soft Musculoskeletal: nl extremities to inspection Extremities: edema (on both lower extremities) Neurological: CONTROL SYSTEMS ENGINEER II-XII intact, nl mental status, nl speech, nl strength Results Result Diagram: 01/26/17 1008 01/27/17 0707 Results 24 hrs Laboratory Tests Test 01/27/17 18:28 Creatine Kinase 57 Creatine Kinase Index 1.2 Creatinine Kinase MB (Mass) 0.68 Troponin I 0.032 Medications Medications Current Medications Cholecalciferol (Vitamin D) 2,000 unit DAILY PO Last administered on 01/28/17 08:35; Admin Dose 2,000 UNIT; Start 01/27/17 at 09:00 Losartan Potassium (Cozaar) 50 mg DAILY PO Last administered on 01/28/17 08:37 ; Admin Dose 50 MG; Start 01/27/17 at 09:00 Atorvastatin Calcium (Lipitor) 10 mg HS PO Last administered on 01/27/17 21:22 ; Admin Dose 10 MG; Start 01/26/17 at 21:00 Ondansetron HCl (Zofran Inj) 4 mg Q6H PRN IV NAUSEA AND/OR VOMITING; Start at 16:00 Acetaminophen (Tylenol Tab) 650 mg Q6H PRN PO PAIN LEVEL 1-3 OR FEVER; Start at 16:00 Acetaminophen (Tylenol Supp) 650 mg Q6H PRN [place] PAIN LEVEL 1-3 OR FEVER; Start 01/26/17 at 16:00 Acetaminophen/ Hydrocodone Bitart ([place] (5/325)) 1 tab Q6H PRN PO MODERATE PAIN LEVEL 4-6 Last administered on 01/27/17 03:07; Admin Dose 1 TAB; Start at 16:00 Acetaminophen/ Hydrocodone Bitart ([place] (5/325)) 2 tab Q6H PRN PO SEVERE PAIN LEVEL 7-10; Start 01/26/17 at 16:00 Morphine Sulfate (morphine) 2 mg Q4H PRN IV SEVERE PAIN LEVEL 7-10 Last administered on 01/27/17 22:58; Admin Dose 2 MG; Start 01/26/17 at 16:00 Docusate Sodium (Colace) 100 mg Q12H PRN PO CONSTIPATION; Start 01/26/17 at 16: 00 Magnesium Hydroxide (Milk Of Mag) 30 ml DAILY PRN PO CONSTIPATION; Start at 16:00 Bisacodyl (Dulcolax Supp) 10 mg DAILY PRN [place] CONSTIPATION; Start 01/26/17 at 16 :00 Pantoprazole (Protonix Iv) 40 mg DAILY@06 IV Last administered on 01/28/17 05: 26; Admin Dose 40 MG; Start 01/27/17 at 06:00 Furosemide (Lasix) 40 mg DAILY IV Last administered on 01/28/17t 08:38; Admin Dose 40 MG; Start 01/27/17 at 09:00 PARDEEP SANDERSON MD Jan 28, 2017 13:53
[2017-01-28] MEDS: POTASSIUM CHLORIDE (SR) 20 MEQ TAB PO SCH (14:33)
[2017-01-28] MEDS: FUROSEMIDE 40 MG TAB PO SCH (14:34)
[2017-01-28] MEDS: METOLAZONE 2.5 MG TAB PO SCH (14:34)
[2017-01-28] MEDS: ENOXAPARIN 40 MG/0.4 ML SYG SC SCH (14:38)
--- NOTE | 2017-01-28 14:39 | RADRPT ---
Echocardiogram Report Patient Name: LEO CAICEDO Gender: Male Date: 1965 Study Date: 28-Jan-2017 Change Control Manager: Sherri Austin RDCS Location: 118 Ref. Physician: PARDEEP SANDERSON Quality: Good Procedures: Transthoracic echocardiogram with complete 2D, M-Mode, and doppler examination. Indications: r/o chf, check PASP. 2D/M Mode Doppler Measurement Value Normal Ranges Measurement Value Normal Ranges LVIDd 2D 5.6 3.5 - 5.6 cm AV Peak Andrea 1.8 m/sec LVIDs 2D 4.3 2.1 - 4.1 cm AV Peak PG 13.4 mmHg LVPWd 2D 1.1 0.6 - 1.1 cm LVOT Peak Andrea 0.8 m/sec IVSd 2D 1.3 0.6 - 1.1 cm LVOT Peak PG 2.8 mmHg AoR Diam 2D 2.7 2.0 - 3.7 cm MV E Peak Andrea 0.9 m/sec EDV 2D 151.0 cm3 MV A Peak Andrea 0.5 m/sec ESV 2D 78.0 cm3 MV E/A 1.8 LA Dimen 2D 5.1 2.3 - 4.0 cm MV Decel Time 177 msec MV Decel [place] 5 MV E/A 1.8 TR Peak Andrea 2.8 m/sec TR Peak PG 32.2 mmHg RVSP 40.0 mmHg Findings Left Ventricle: Lower limits of normal systolic function. Normal left ventricular cavity size. Mild concentric left ventricular hypertrophy. Ejection fraction is visually estimated at 50 %. Tissue Doppler/Mitral Doppler indices are consistent with pseudonormalization with mildly elevated left atrial pressure (Stage II diastolic dysfunction). Right Ventricle: Normal right ventricular size. Normal right ventricular systolic function. Left Atrium: There is severe enlargement of left atrium. Right Atrium: The right atrium is normal in size. Mitral Valve: Mitral valve leaflets appear mildly thickened. Mild mitral annular calcification. Mild mitral valve regurgitation. Aortic Valve: No significant aortic stenosis or insufficiency. Aortic cusps appear mildly calcified. Tricuspid Valve: Normal appearance of the tricuspid valve. Estimated peak PA systolic pressure 40 mmHg. There is mild tricuspid regurgitation. Pulmonic Valve: Normal pulmonic valve appearance. Pericardium: Normal pericardium with no significant pericardial effusion. Aorta: Normal aortic root. IVC: Dilated IVC with respiratory collapse consistent with elevated right atrial pressure. Conclusions 1.Lower limits of normal systolic function. Normal left ventricular cavity size. Mild concentric left ventricular hypertrophy. Ejection fraction is visually estimated at 50 %. Tissue Doppler/Mitral Doppler indices are consistent with pseudonormalization with mildly elevated left atrial pressure (Stage II diastolic dysfunction). 2.Normal right ventricular size. Normal right ventricular systolic function. 3.There is severe enlargement of left atrium. 4.The right atrium is normal in size. 5.Mild mitral valve regurgitation. 6.No significant aortic stenosis or insufficiency. 7.Estimated peak PA systolic pressure 40 mmHg. There is mild tricuspid regurgitation. 8.Normal pericardium with no significant pericardial effusion. Electronically Signed By: Dandy Vicente 28-Jan-2017 14:37:55 -0700 Patient Name: LEO CAICEDO Study Date: 28-Jan-2017 [id number]
--- NOTE | 2017-01-28 16:13 | CONS ---
Date/Time of Note Date/Time of Note DATE: 01/28/17 TIME: 16:07 Assessment/Plan Assessment/Plan Additional Assessment/Plan Acute decompensated diastolic congestive heart failure, improved Preserved ejection fraction Hypertension Paroxysmal atrial tachycardia Schizophrenia Tobacco use -Patient with improvement in symptoms with diuresis. Serial cardiac enzymes remain negative. ECG without any evidence of significant ischemic abnormalities. Would continue diuretics as renal function and blood pressure permits. Telemetry reviewed with brief episodes of paroxysmal atrial tachycardia and patient denies any palpitations. Maintain potassium above 4.0 and magnesium above 2.0. Will start low-dose beta-kelly and titrate as blood pressure and heart rate permits. Consultation Date/Type/Reason Admit Date/Time Type of Consultation: cv Reason for Consultation Shortness of breath and lower extremity edema Hx of Present Illness This is a 51-year-old male past medical history of hypertension, tobacco use presents with multiple complaints including abdominal pain, lower extremity edema and shortness of breath. Patient states over the past few weeks, he has been having worsening lower extremity edema. He also has been complaining of shortness of breath. Shortness of breath has been worse with exertion. Denies exertional chest pain, palpitations or dizziness. He does also complain of abdominal discomfort which has been intermittent. He denies any cough. Since his admission, shortness of breath has improved significantly with diuretics as well as lower extremity edema. 12 point review of systems was performed with all pertinent positives and negatives mentioned above and all else is negative Psychological: nl mood/affect, no complaints Past Medical History Schizophrenia Medical History: hypertension Past Surgical History Back surgery Family History Significant Family History: no pertinent family hx Social History Alcohol Use: heavy (Does reportedly have history of alcohol use but exact amount unknown) Smoking Status: Current every day smoker Drug Use: other (unknown) Exam/Review of Systems Vital Signs Vitals Vital Signs Date Time Temp Pulse Resp B/P Pulse Ox O2 Delivery O2 Flow Rate FiO2 01/28/17 15:55 97.8 79 19 115/80 97 01/28/17 08:00 Nasal Cannula 3.0 Intake and Output 01/27/17 01/27/17 01/28/17 15:00 23:00 07:00 Intake Total 700 ml 160 ml Output Total 2100 ml 700 ml Balance -1400 ml -540 ml Exam No apparent distress, requires frequent redirecting with question taking but otherwise able to give history Constitutional: alert, oriented Head: normocephalic Neck: supple Respiratory: normal air movement, other (Coarse breath sounds bilaterally, no wheezing) Cardiovascular: other (S1-S2 heard), regular rate and rhythm Gastrointestinal: bowel sounds, non-tender, soft Extremities: edema Results Result Diagram: 01/26/17 1008 01/27/17 0707 Results 24 hrs Laboratory Tests Test 01/27/17 18:28 Creatine Kinase 57 Creatine Kinase Index 1.2 Creatinine Kinase MB (Mass) 0.68 Troponin I 0.032 Medications Medications Current Medications Cholecalciferol (Vitamin D) 2,000 unit DAILY PO Last administered on 01/28/17 08:35; Admin Dose 2,000 UNIT; Start 01/27/17 at 09:00 Losartan Potassium (Cozaar) 50 mg DAILY PO Last administered on 01/28/17 08:37 ; Admin Dose 50 MG; Start 01/27/17 at 09:00 Atorvastatin Calcium (Lipitor) 10 mg HS PO Last administered on 01/27/17 21:22 ; Admin Dose 10 MG; Start 01/26/17 at 21:00 Ondansetron HCl (Zofran Inj) 4 mg Q6H PRN IV NAUSEA AND/OR VOMITING; Start at 16:00 Acetaminophen (Tylenol Tab) 650 mg Q6H PRN PO PAIN LEVEL 1-3 OR FEVER; Start at 16:00 Acetaminophen (Tylenol Supp) 650 mg Q6H PRN [place] PAIN LEVEL 1-3 OR FEVER; Start 01/26/17 at 16:00 Acetaminophen/ Hydrocodone Bitart ([place] (5/325)) 1 tab Q6H PRN PO MODERATE PAIN LEVEL 4-6 Last administered on 01/27/17 03:07; Admin Dose 1 TAB; Start at 16:00 Acetaminophen/ Hydrocodone Bitart ([place] (5/325)) 2 tab Q6H PRN PO SEVERE PAIN LEVEL 7-10; Start 01/26/17 at 16:00 Morphine Sulfate (morphine) 2 mg Q4H PRN IV SEVERE PAIN LEVEL 7-10 Last administered on 01/27/17 22:58; Admin Dose 2 MG; Start 01/26/17 at 16:00 Docusate Sodium (Colace) 100 mg Q12H PRN PO CONSTIPATION; Start 01/26/17 at 16: 00 Magnesium Hydroxide (Milk Of Mag) 30 ml DAILY PRN PO CONSTIPATION; Start at 16:00 Bisacodyl (Dulcolax Supp) 10 mg DAILY PRN [place] CONSTIPATION; Start 01/26/17 at 16 :00 Pantoprazole (Protonix Iv) 40 mg DAILY@06 IV Last administered on 01/28/17 05: 26; Admin Dose 40 MG; Start 01/27/17 at 06:00 Furosemide (Lasix) 40 mg DAILY PO Last administered on 01/28/17 14:34; Admin Dose 40 MG; Start 01/28/17 at 14:00 Metolazone (Zaroxolyn) 2.5 mg DAILY PO Last administered on 01/28/17 14:34; Admin Dose 2.5 MG; Start 01/28/17 at 14:00 Potassium Chloride (Klor-Con 20) 20 meq DAILY PO Last administered on 14:33; Admin Dose 20 MEQ; Start 01/28/17 at 14:00 Enoxaparin Sodium (Lovenox) 40 mg DAILY SC Last administered on 01/28/17 14:38 ; Admin Dose 40 MG; Start 01/28/17 at 14:00 Procedures Procedures ECG done on 01/26/2017 demonstrates sinus rhythm at 88 bpm, QRS 98 ms, nonspecific STT wave abnormalities Telemetry reviewed with brief episodes of paroxysmal atrial tachycardia lasting for a few seconds Dandy Vicente DO Jan 28, 2017 16:13
[2017-01-28] MEDS: ATORVASTATIN 10 MG TAB PO SCH (20:32)
[2017-01-28] MEDS: METOPROLOL 25 MG TAB PO SCH (20:33)
[2017-01-29] VITALS (11 sets, daily range): BP systolic 111–139; BP diastolic 74–97; PULSE 60–78; RESP 17–19
[2017-01-29] MEDS: PANTOPRAZOLE 40 MG INJ IV SCH (05:45)
[2017-01-29 07:48] LABS: CALCIUM 9.2 mg/dl (8.4-10.2); CREATININE 1.19 mg/dl (0.61-1.24); POTASSIUM 4.1 mmol/L (3.5-5.1)
[2017-01-29] MEDS: POTASSIUM CHLORIDE (SR) 20 MEQ TAB PO SCH (08:14)
[2017-01-29] MEDS: METOLAZONE 2.5 MG TAB PO SCH (08:14)
[2017-01-29] MEDS: LOSARTAN 50 MG TAB PO SCH (08:14)
[2017-01-29] MEDS: FUROSEMIDE 40 MG TAB PO SCH (08:15)
[2017-01-29] MEDS: METOPROLOL 25 MG TAB PO SCH ×2 (08:15→20:53)
[2017-01-29] MEDS: CHOLECALCIFEROL 2,000 UNIT CAP PO SCH (08:15)
[2017-01-29] MEDS: ENOXAPARIN 40 MG/0.4 ML SYG SC SCH (08:16)
--- NOTE | 2017-01-29 17:03 | PN ---
Date/Time of Note Date/Time of Note DATE: 01/29/17 TIME: 17:02 Assessment/Plan VTE Prophylaxis VTE Prophylaxis Intervention: LMWH Lines/Catheters IV Catheter Type (from [facility]): [place] Urinary Cath still in place: No Assessment/Plan Chief Complaint/Hosp Course 1. Acute decompensated diastolic heart failure. Continue diuresis as per cardiology. 2. Cholelithiasis. Status post evaluation by general surgery. As per general surgery, the patient has asymptomatic cholelithiasis and does not need any surgical interventions at this time. 3. Essential hypertension. Continue antihypertensives. 4. Paroxysmal atrial tachycardia. Continue Lopressor. 5. Dyslipidemia. Continue statins. 6. Schizophrenia. Not on any antipsychotics. Stable. 7. Nicotine use. Cessation advised. 8. Right hip pain. The patient verbalized that he has got intra-articular injections for right hip pain in the past. Will obtain a right hip x-ray. 9. Fluids, electrolytes, and nutrition. Low-cholesterol diet. 10. DVT prophylaxis. Subcutaneous Lovenox. 11. Gastrointestinal prophylaxis. Proton pump inhibitors. 12. Plan. Continue current management. Obtain a right hip x-ray. Await clearance from consultants before discharge. Case discussed with Dr. Palumbo. Problems: Subjective 24 Hr Interval Summary Free Text/Dictation Denies any dyspnea or chest pain. Complains of right hip pain and decreased range of motion of the right hip joint. Exam/Review of Systems Vital Signs Vitals Vital Signs Date Time Temp Pulse Resp B/P Pulse Ox O2 Delivery O2 Flow Rate FiO2 01/29/17 16:45 76 01/29/17 11:23 98.6 19 122/87 98 Room Air 01/29/17 07:53 3.0 Intake and Output 01/28/17 01/28/17 01/29/17 15:00 23:00 07:00 Intake Total 500 ml 200 ml Output Total 2100 ml 2500 ml Balance -1600 ml -2300 ml Exam General: Adequately build 51 year-old male lying in bed in no apparent distress. HEENT: Normocephalic, atraumatic. Eyes: Anicteric sclerae, conjunctivae clear. ENT: Nasal septum midline, oral mucosa moist. Neck supple, no JVD noticed. Respiratory: Bilaterally diminished breath sounds. No use of accessory muscles of respiration. Cardiovascular: S1, S2 heard. No murmurs or gallops. Abdomen: Soft, nontender, and nondistended. Bowel sounds positive in all 4 quadrants. Genitourinary: Deferred. Extremities: No cyanosis, no clubbing, no edema. Peripheral pulses palpable. Right hip tenderness. Neurologic: Cranial nerves II through XII grossly intact. The patient is awake, alert, and oriented. Skin: Normal skin turgor. No skin rashes. Mood: Flat affect. Results Result Diagram: 01/26/17 1008 01/29/17 0648 Results 24 hrs Laboratory Tests Test 01/29/17 06:48 Sodium Level 140 Potassium Level 4.1 Chloride Level 102 Carbon Dioxide Level 24 Anion Gap 18 H Blood Urea Nitrogen 20 Creatinine 1.19 Glucose Level 123 Calcium Level 9.2 Medications Medications Current Medications Cholecalciferol (Vitamin D) 2,000 unit DAILY PO Last administered on 01/29/17 08:15; Admin Dose 2,000 UNIT; Start 01/27/17 at 09:00 Losartan Potassium (Cozaar) 50 mg DAILY PO Last administered on 01/29/17 08:14 ; Admin Dose 50 MG; Start 01/27/17 at 09:00 Atorvastatin Calcium (Lipitor) 10 mg HS PO Last administered on 01/28/17 20:32 ; Admin Dose 10 MG; Start 01/26/17 at 21:00 Ondansetron HCl (Zofran Inj) 4 mg Q6H PRN IV NAUSEA AND/OR VOMITING; Start at 16:00 Acetaminophen (Tylenol Tab) 650 mg Q6H PRN PO PAIN LEVEL 1-3 OR FEVER; Start at 16:00 Acetaminophen (Tylenol Supp) 650 mg Q6H PRN [place] PAIN LEVEL 1-3 OR FEVER; Start 01/26/17 at 16:00 Acetaminophen/ Hydrocodone Bitart ([place] (5/325)) 1 tab Q6H PRN PO MODERATE PAIN LEVEL 4-6 Last administered on 01/27/17 03:07; Admin Dose 1 TAB; Start at 16:00 Acetaminophen/ Hydrocodone Bitart ([place] (5/325)) 2 tab Q6H PRN PO SEVERE PAIN LEVEL 7-10; Start 01/26/17 at 16:00 Morphine Sulfate (morphine) 2 mg Q4H PRN IV SEVERE PAIN LEVEL 7-10 Last administered on 01/27/17 22:58; Admin Dose 2 MG; Start 01/26/17 at 16:00 Docusate Sodium (Colace) 100 mg Q12H PRN PO CONSTIPATION; Start 01/26/17 at 16: 00 Magnesium Hydroxide (Milk Of Mag) 30 ml DAILY PRN PO CONSTIPATION; Start at 16:00 Bisacodyl (Dulcolax Supp) 10 mg DAILY PRN [place] CONSTIPATION; Start 01/26/17 at 16 :00 Pantoprazole (Protonix Iv) 40 mg DAILY@06 IV Last administered on 01/29/17 05: 45; Admin Dose 40 MG; Start 01/27/17 at 06:00 Furosemide (Lasix) 40 mg DAILY PO Last administered on 01/29/17 08:15; Admin Dose 40 MG; Start 01/28/17 at 14:00 Metolazone (Zaroxolyn) 2.5 mg DAILY PO Last administered on 01/29/17 08:14; Admin Dose 2.5 MG; Start 01/28/17 at 14:00 Potassium Chloride (Klor-Con 20) 20 meq DAILY PO Last administered on 08:14; Admin Dose 20 MEQ; Start 01/28/17 at 14:00 Enoxaparin Sodium (Lovenox) 40 mg DAILY SC Last administered on 01/29/17 08:16 ; Admin Dose 40 MG; Start 01/28/17 at 14:00 Metoprolol Tartrate (Lopressor) 25 mg BID PO Last administered on 01/29/17 08: 15; Admin Dose 25 MG; Start 01/28/17 at 21:00 JESSICA KRUEGER NP Jan 29, 2017 17:03
--- NOTE | 2017-01-29 18:23 | RADRPT ---
PROCEDURE: XR Right Hip. CLINICAL INDICATION: Right hip pain. TECHNIQUE: Two views. Frontal and lateral. COMPARISON: No prior studies are available for comparison. FINDINGS: There is no fracture or dislocation. The soft tissues are normal. Articular surfaces are intact. There is no lytic or blastic lesion. There is no radiopaque foreign body. IMPRESSION: 1. Normal images of the right hip. RPTAT: QQ .Jonathan Middleton MD, MD Date Time Electronically viewed and signed by .Jonathan Middleton MD, MD on 01/29/2017 18:22 .R/
--- NOTE | 2017-01-29 18:43 | CONS ---
Date/Time of Note Date/Time of Note DATE: 01/29/17 TIME: 18:41 Assessment/Plan Assessment/Plan Additional Assessment/Plan Acute decompensated diastolic congestive heart failure, improved Preserved ejection fraction Hypertension Paroxysmal atrial tachycardia Schizophrenia Tobacco use -Respiratory status continues to improve, lower extremity edema as well. Continue diuretic therapy, continue beta-blockers heart rate and blood pressure permits. Maintain potassium above 4.0 and magnesium above 2.0. DC planning Consultation Date/Type/Reason Admit Date/Time Jan 26, 2017 at 13:55 Initial Consult Date 01/26/17 Type of Consultation: cv 24 HR Interval Summary Free Text/Dictation Denies shortness of breath and lower extremity edema has improved. Denies chest pain or palpitations Exam/Review of Systems Vital Signs Vitals Vital Signs Date Time Temp Pulse Resp B/P Pulse Ox O2 Delivery O2 Flow Rate FiO2 01/29/17 17:16 2.0 01/29/17 16:59 98.7 72 18 111/78 98 01/29/17 11:23 Room Air Intake and Output 01/28/17 01/28/17 01/29/17 15:00 23:00 07:00 Intake Total 500 ml 200 ml Output Total 2100 ml 2500 ml Balance -1600 ml -2300 ml Exam No apparent distress Constitutional: alert, oriented Head: normocephalic Neck: supple Respiratory: other (Coarse breath sounds bilaterally, no wheezing) Cardiovascular: other (S1-S2 heard), regular rate and rhythm Gastrointestinal: bowel sounds, non-tender, soft Extremities: edema Results Result Diagram: 01/26/17 1008 01/29/17 0648 Results 24 hrs Laboratory Tests Test 01/29/17 06:48 Sodium Level 140 Potassium Level 4.1 Chloride Level 102 Carbon Dioxide Level 24 Anion Gap 18 H Blood Urea Nitrogen 20 Creatinine 1.19 Glucose Level 123 Calcium Level 9.2 Medications Medications Current Medications Cholecalciferol (Vitamin D) 2,000 unit DAILY PO Last administered on 01/29/17 08:15; Admin Dose 2,000 UNIT; Start 01/27/17 at 09:00 Losartan Potassium (Cozaar) 50 mg DAILY PO Last administered on 01/29/17 08:14 ; Admin Dose 50 MG; Start 01/27/17 at 09:00 Atorvastatin Calcium (Lipitor) 10 mg HS PO Last administered on 01/28/17 20:32 ; Admin Dose 10 MG; Start 01/26/17 at 21:00 Ondansetron HCl (Zofran Inj) 4 mg Q6H PRN IV NAUSEA AND/OR VOMITING; Start at 16:00 Acetaminophen (Tylenol Tab) 650 mg Q6H PRN PO PAIN LEVEL 1-3 OR FEVER; Start at 16:00 Acetaminophen (Tylenol Supp) 650 mg Q6H PRN [place] PAIN LEVEL 1-3 OR FEVER; Start 01/26/17 at 16:00 Acetaminophen/ Hydrocodone Bitart ([place] (5/325)) 1 tab Q6H PRN PO MODERATE PAIN LEVEL 4-6 Last administered on 01/27/17 03:07; Admin Dose 1 TAB; Start at 16:00 Acetaminophen/ Hydrocodone Bitart ([place] (5/325)) 2 tab Q6H PRN PO SEVERE PAIN LEVEL 7-10; Start 01/26/17 at 16:00 Morphine Sulfate (morphine) 2 mg Q4H PRN IV SEVERE PAIN LEVEL 7-10 Last administered on 01/27/17 22:58; Admin Dose 2 MG; Start 01/26/17 at 16:00 Docusate Sodium (Colace) 100 mg Q12H PRN PO CONSTIPATION; Start 01/26/17 at 16: 00 Magnesium Hydroxide (Milk Of Mag) 30 ml DAILY PRN PO CONSTIPATION; Start at 16:00 Bisacodyl (Dulcolax Supp) 10 mg DAILY PRN [place] CONSTIPATION; Start 01/26/17 at 16 :00 Furosemide (Lasix) 40 mg DAILY PO Last administered on 01/29/17 08:15; Admin Dose 40 MG; Start 01/28/17 at 14:00 Metolazone (Zaroxolyn) 2.5 mg DAILY PO Last administered on 01/29/17 08:14; Admin Dose 2.5 MG; Start 01/28/17 at 14:00 Potassium Chloride (Klor-Con 20) 20 meq DAILY PO Last administered on 08:14; Admin Dose 20 MEQ; Start 01/28/17 at 14:00 Enoxaparin Sodium (Lovenox) 40 mg DAILY SC Last administered on 01/29/17 08:16 ; Admin Dose 40 MG; Start 01/28/17 at 14:00 Metoprolol Tartrate (Lopressor) 25 mg BID PO Last administered on 01/29/17t 08: 15; Admin Dose 25 MG; Start 01/28/17 at 21:00 Pantoprazole (Protonix Tab) 40 mg DAILY@06 PO ; Start 01/30/17 at 06:00 Dandy Vicente DO Jan 29, 2017 18:43
[2017-01-29] MEDS: ATORVASTATIN 10 MG TAB PO SCH (20:52)
[2017-01-30] VITALS (11 sets, daily range): BP systolic 104–125; BP diastolic 67–86; PULSE 62–154; RESP 17–19
[2017-01-30] MEDS ORDERED: PANTOPRAZOLE (EC) 40 MG TAB PO SCH (06:00)
[2017-01-30 07:21] LABS: BASOPHIL # 0.1 10^3/ul (0.0-0.1); BASOPHILS % 1.2 % (0.0-2.0); EOSINOPHILS # 0.4 10^3/ul (0.0-0.5); EOSINOPHILS % 6.7 % (0.0-7.0); HEMATOCRIT 49.7 % (42.0-52.0); HEMOGLOBIN 16.3 g/dl (14.0-18.0); LYMPHOCYTES # 1.8 10^3/ul (0.8-2.9); LYMPHOCYTES % 30.5 % (15.0-51.0); MEAN CORPUSCULAR HGB CONC 32.8 g/dl (32.0-37.0); MEAN CORPUSCULAR VOLUME 91.4 fl (82.0-101.0); MEAN PLATELET VOLUME 9.2 fl (7.4-10.4); MONOCYTE # 0.7 10^3/ul (0.3-0.9); MONOCYTES % 11.7 % (0.0-11.0); NEUTROPHIL # 2.9 10^3/ul (1.6-7.5); NEUTROPHILS % 48.7 % (39.0-77.0); PLATELET COUNT 221 10^3/UL (140-415); RED BLOOD COUNT 5.44 10^6/ul (4.70-6.10)
[2017-01-30 09:06] LABS: CALCIUM 9.9 mg/dl (8.4-10.2); CREATININE 1.22 mg/dl (0.61-1.24); POTASSIUM 4.7 mmol/L (3.5-5.1)
[2017-01-30 09:16] LABS: MAGNESIUM 2.1 mg/dl (1.7-2.5); PHOSPHORUS 4.9 mg/dl (2.5-4.9)
[2017-01-30] MEDS: CHOLECALCIFEROL 2,000 UNIT CAP PO SCH (09:26)
[2017-01-30] MEDS: POTASSIUM CHLORIDE (SR) 20 MEQ TAB PO SCH (09:26)
[2017-01-30] MEDS: LOSARTAN 50 MG TAB PO SCH (09:27)
[2017-01-30] MEDS: FUROSEMIDE 40 MG TAB PO SCH (09:27)
[2017-01-30] MEDS: METOLAZONE 2.5 MG TAB PO SCH (09:28)
[2017-01-30] MEDS: METOPROLOL 25 MG TAB PO SCH (09:28)
[2017-01-30] MEDS: ENOXAPARIN 40 MG/0.4 ML SYG SC SCH (09:31)
--- NOTE | 2017-01-30 10:00 | CONS ---
Date/Time of Note Date/Time of Note DATE: 01/30/17 TIME: 09:57 Assessment/Plan Assessment/Plan Additional Assessment/Plan Acute decompensated diastolic congestive heart failure, improved Preserved ejection fraction Hypertension Paroxysmal atrial tachycardia Schizophrenia Tobacco use -Respiratory status continues to improve, lower extremity edema as well. DC metolazone and continue maintenance Lasix, continue beta-blocke as heart rate and blood pressure permits. Maintain potassium above 4.0 and magnesium above 2.0. DC planning Consultation Date/Type/Reason Admit Date/Time Jan 26, 2017 at 13:55 Initial Consult Date 01/26/17 Type of Consultation: cv 24 HR Interval Summary Free Text/Dictation Patient seen and examined, some coughing today during breakfast but otherwise denies shortness of breath. Exam/Review of Systems Vital Signs Vitals Vital Signs Date Time Temp Pulse Resp B/P Pulse Ox O2 Delivery O2 Flow Rate FiO2 01/30/17 08:25 154 01/30/17 07:57 97.5 17 123/86 97 01/30/17 07:57 Nasal Cannula 2.0 Intake and Output 01/29/17 01/29/17 01/30/17 15:00 23:00 07:00 Intake Total 360 ml 250 ml Output Total 720 ml 700 ml Balance -360 ml -450 ml Exam Family at bedside Constitutional: alert, oriented Head: normocephalic Respiratory: other (Coarse breath sounds bilaterally, no wheezing) Cardiovascular: other (s1s2 heard), regular rate and rhythm Gastrointestinal: bowel sounds, non-tender, soft Extremities: edema (Minimal) Results Result Diagram: 01/30/17 0648 01/30/17 0647 Results 24 hrs Laboratory Tests Test 01/30/17 06:47 01/30/17 06:48 Sodium Level 139 Potassium Level 4.7 Chloride Level 99 Carbon Dioxide Level 24 Anion Gap 21 H Blood Urea Nitrogen 20 Creatinine 1.22 Glucose Level 108 Calcium Level 9.9 White Blood Count 6.0 Red Blood Count 5.44 # Hemoglobin 16.3 # Hematocrit 49.7 # Mean Corpuscular Volume 91.4 Mean Corpuscular Hemoglobin 30.0 Mean Corpuscular Hemoglobin Concent 32.8 Red Cell Distribution Width 15.0 H Platelet Count 221 Mean Platelet Volume 9.2 Neutrophils % 48.7 Lymphocytes % 30.5 Monocytes % 11.7 H Eosinophils % 6.7 Basophils % 1.2 Nucleated Red Blood Cells % 0.0 Neutrophils # 2.9 Lymphocytes # 1.8 Monocytes # 0.7 Eosinophils # 0.4 Basophils # 0.1 Nucleated Red Blood Cells # 0.0 Phosphorus Level 4.9 Magnesium Level 2.1 Medications Medications Current Medications Cholecalciferol (Vitamin D) 2,000 unit DAILY PO Last administered on 01/30/17 09:26; Admin Dose 2,000 UNIT; Start 01/27/17 at 09:00 Losartan Potassium (Cozaar) 50 mg DAILY PO Last administered on 01/30/17 09:27 ; Admin Dose 50 MG; Start 01/27/17 at 09:00 Atorvastatin Calcium (Lipitor) 10 mg HS PO Last administered on 01/29/17 20:52 ; Admin Dose 10 MG; Start 01/26/17 at 21:00 Ondansetron HCl (Zofran Inj) 4 mg Q6H PRN IV NAUSEA AND/OR VOMITING; Start at 16:00 Acetaminophen (Tylenol Tab) 650 mg Q6H PRN PO PAIN LEVEL 1-3 OR FEVER; Start at 16:00 Acetaminophen (Tylenol Supp) 650 mg Q6H PRN [place] PAIN LEVEL 1-3 OR FEVER; Start 01/26/17 at 16:00 Acetaminophen/ Hydrocodone Bitart ([place] (5/325)) 1 tab Q6H PRN PO MODERATE PAIN LEVEL 4-6 Last administered on 01/27/17 03:07; Admin Dose 1 TAB; Start at 16:00 Acetaminophen/ Hydrocodone Bitart ([place] (5/325)) 2 tab Q6H PRN PO SEVERE PAIN LEVEL 7-10; Start 01/26/17 at 16:00 Morphine Sulfate (morphine) 2 mg Q4H PRN IV SEVERE PAIN LEVEL 7-10 Last administered on 01/27/17 22:58; Admin Dose 2 MG; Start 01/26/17 at 16:00 Docusate Sodium (Colace) 100 mg Q12H PRN PO CONSTIPATION; Start 01/26/17 at 16: 00 Magnesium Hydroxide (Milk Of Mag) 30 ml DAILY PRN PO CONSTIPATION; Start at 16:00 Bisacodyl (Dulcolax Supp) 10 mg DAILY PRN [place] CONSTIPATION; Start 7/24/17 at 16 :00 Furosemide (Lasix) 40 mg DAILY PO Last administered on 01/30/17 09:27; Admin Dose 40 MG; Start 01/28/17 at 14:00 Metolazone (Zaroxolyn) 2.5 mg DAILY PO Last administered on 01/30/17 09:28; Admin Dose 2.5 MG; Start 01/28/17 at 14:00 Potassium Chloride (Klor-Con 20) 20 meq DAILY PO Last administered on 09:26; Admin Dose 20 MEQ; Start 01/28/17 at 14:00 Enoxaparin Sodium (Lovenox) 40 mg DAILY SC Last administered on 01/30/17 09:31 ; Admin Dose 40 MG; Start 01/28/17 at 14:00 Metoprolol Tartrate (Lopressor) 25 mg BID PO Last administered on 01/30/17 09: 28; Admin Dose 25 MG; Start 01/28/17 at 21:00 Pantoprazole (Protonix Tab) 40 mg DAILY@06 PO Last administered on 01/30/17 06 :18; Admin Dose 40 MG; Start 01/30/17 at 06:00 Dandy Vicente DO Jan 30, 2017 10:00
[2017-01-30] MEDS ORDERED: FURO40TA4 PO (14:26)
--- NOTE | 2017-01-30 14:33 | PDOCDIS ---
Discharge Instructions DIAGNOSIS Discharge Diagnosis Diastolic congestive heart failure exacerbation Hypertension CONDITION Patient Condition: Good HOME CARE INSTRUCTIONS: Diet Instructions: Reduced SodiumSpecial Diet: Cardiac diet ACTIVITY: Activity Restrictions: No Restrictions FOLLOW UP/APPOINTMENTS Follow-up Plan Follow up with your primary care provider within the next 1-2 weeks. It is important that your doctor check your blood work as you will be taking an increased dose of lasix which can cause alterations in your electrolytes If you develop worsening swelling, shortness of breath, or feelings of dehydration seek medical care as soon as you can It is important for you to ensure your blood pressure is controlled JEREMIAH REYNOSO MD Jan 30, 2017 14:33
--- NOTE | 2017-01-30 14:36 | DS ---
Date/Time of Note Date/Time of Note DATE: 01/30/17 TIME: 14:34 Discharge Summary Admission/Discharge Info Admit Date/Time Jan 26, 2017 at 13:55 Discharge Date/Time Discharge Diagnosis Diastolic congestive heart failure exacerbation Hypertension Patient Condition: Good Consults Cardiology General surgery Hx of Present Illness This is a 51-year-old male with history of schizophrenia, hypertension, chronic back pain with herniated disc status post surgical repair, who came to [facility] due to reports of increased bilateral lower extremity edema as well as shortness of breath on exertion and abdominal pain for 1 month duration. Patient of note does live at home with family but reportedly cares for himself. He was seen by family with more notable shortness of breath last night and was subsequently brought to [facility] for further evaluation. Upon examination he did have chest x-ray done that did show him to have mild cardiomegaly as well as a right lower lobe linear atelectatic change. Subsequently abdominal pelvic CT scan was done also that did show him to have multiple calcified gallstones and trace pericholecystic fluid with suspect cholecystitis. There is incidentally found a 3 mm nonobstructing superior right renal calcified calculus as well. There was seen colonic diverticulosis without evidence of diverticulitis. And there was also seen a small fat- containing right inguinal hernia without herniated bowel or stimulation. Patient also had blood work done that did show him to have some slight anemia with hemoglobin of 13.2 and hematocrit of 40.0 respectively. Additionally BNP was done that did show him to have a level of 2470. Patient was hypertensive on admission with blood pressure as high as 170/101. He was afebrile. He does report having some intermittent chest pain [id number]. He also reports having some dyspnea on exertion. Initial troponin was negative. We will evaluate him for the aformentiond issues. Hospital Course The patient was treated for an acute diastolic CHF exacerbation with IV lasix. He responded well to diuresis. His symptoms resolved with removal of fluid. He was discharged on an increased dose of lasix (40 mg from 20 mg). He will follow up in 1-2 weeks with his primary care provider. Home Meds Active Scripts Furosemide* (Furosemide*) 40 Mg Tablet, 40 MG PO DAILY for 14 Days, #30 TAB Prov:JEREMIAH REYNOSO MD 01/30/17 Reported Medications Cholecalciferol* (Vitamin D3*) 1,000 Unit Tablet, 2000 UNIT PO DAILY, TAB 01/26/17 Losartan Potassium* (Losartan Potassium*) 50 Mg Tablet, 50 MG PO DAILY, TAB 01/26/17 Furosemide* (Lasix*) 20 Mg Tablet, 20 MG PO DAILY, TAB 01/26/17 Lovastatin* (Lovastatin*) 20 Mg Tablet, 20 MG PO HS, TAB 01/26/17 Potassium Chloride (Klor-Con M10) 10 Meq Tab.prt.sr, 10 MEQ PO DAILY 01/26/17 Discontinued Reported Medications Atorvastatin (Lipitor) 20 Mg Tablet 05/23/10 Metoprolol Succinate (Toprol Xl) 200 Mg Tab.sr.24h 05/23/10 Amlodipine Besylate* (Amlodipine Besylate*) 5 Mg Tablet 05/23/10 Sertraline Hcl* (Sertraline Hcl*) 100 Mg Tablet 05/23/10 [Respirdone] No Conflict Check 05/23/10 Primary Care Provider Cricket Hernandez Time spent on discharge: > 30 minutes Pending Labs Laboratory Tests Test 01/30/17 06:47 01/30/17 06:48 Sodium Level 139mmol/L (135-144) Potassium Level 4.7mmol/L (3.5-5.1) Chloride Level 99mmol/L (97-110) Carbon Dioxide Level 24mmol/L (21-31) Anion Gap 21 (8-16) Blood Urea Nitrogen 20mg/dl (7-20) Creatinine 1.22mg/dl (0.61-1.24) Glucose Level 108mg/dl (70-220) Calcium Level 9.9mg/dl (8.4-10.2) White Blood Count 6.010^3/ul (4.8-10.8) Red Blood Count 5.4410^6/ul (4.70-6.10) Hemoglobin 16.3g/dl (14.0-18.0) Hematocrit 49.7% (42.0-52.0) Mean Corpuscular Volume 91.4fl (82.0-101.0) Mean Corpuscular Hemoglobin 30.0pg (29.0-33.0) Mean Corpuscular Hemoglobin Concent 32.8g/dl (32.0-37.0) Red Cell Distribution Width 15.0% (11.5-14.5) Platelet Count 97750^3/UL (140-415) Mean Platelet Volume 9.2fl (7.4-10.4) Neutrophils % 48.7% (39.0-77.0) Lymphocytes % 30.5% (15.0-51.0) Monocytes % 11.7% (0.0-11.0) Eosinophils % 6.7% (0.0-7.0) Basophils % 1.2% (0.0-2.0) Nucleated Red Blood Cells % 0.0/100WBC (0.0-0.0) Neutrophils # 2.910^3/ul (1.6-7.5) Lymphocytes # 1.810^3/ul (0.8-2.9) Monocytes # 0.710^3/ul (0.3-0.9) Eosinophils # 0.410^3/ul (0.0-0.5) Basophils # 0.110^3/ul (0.0-0.1) Nucleated Red Blood Cells # 0.010^3/ul (0.0-0.0) Phosphorus Level 4.9mg/dl (2.5-4.9) Magnesium Level 2.1mg/dl (1.7-2.5) JEREMIAH REYNOSO MD Jan 30, 2017 14:36
== END 2017-01-30 17:10 | disposition home or self-care (01) | DRG 292 ==
LOC: E/R 09:14 → MS4 13:55
PROVIDERS: ADMIT Internal Medicine; ATTEND Internal Medicine
DX: I11.0 Hypertensive heart disease with heart failure (principal); J90 Pleural effusion, not elsewhere classified; I47.1 Supraventricular tachycardia; I50.33 Acute on chronic diastolic (congestive) heart failure; R60.0 Localized edema; N20.0 Calculus of kidney; K57.30 Diverticulosis of large intestine without perforation or abscess without bleeding; K81.9 Cholecystitis, unspecified; K40.90 Unilateral inguinal hernia, without obstruction or gangrene, not specified as recurrent; G89.29 Other chronic pain; M54.9 Dorsalgia, unspecified; D64.9 Anemia, unspecified; L29.9 Pruritus, unspecified; E78.5 Hyperlipidemia, unspecified; F17.200 Nicotine dependence, unspecified, uncomplicated; F20.9 Schizophrenia, unspecified; M25.551 Pain in right hip; Z98.890 Other specified postprocedural states
CPT/HCPCS: 36415; 36600; 71010; 73510; 74176; 76705; 80048; 80053; 80061; 82105; 82378; 82550; 82553; 82803; 83036; 83690; 83735; 83880; 84100; 84436; 84443; 84479; 84484; 85025; 85610; 93005; 93306; 93970; 94640; 94644; 96374; 96375; C9113; J1650; J1940; J2270; J7030